=== PATIENT | male | born 1960 | race Caucasian/White ===

== ENCOUNTER 2017-04-04 15:55 | Emergency (ER) | payer OTHER ==
[~2017-04-04] VITALS: Ht 180.3 cm; Wt 122.5 kg
[~2017-04-04 15:55] MED LIST: ASPIRIN 81MG TA81 MG PO; FLEXERIL10 MG PO; FLONASE 50 MCG16 GM; HCTZ OR; LASIX40 MG PO; LEVAQUIN 750 M750 MG PO; LIPITOR20 MG OR; LISINOPRIL2.5 MG PO; LORATADINE 10MG10 M1 PO; MULTIVITAMIN1 TA1 PO; PAXIL20 MG PO; PLAVIX75 MG PO; POTASSIUM CHLO20 ME2 PO; PREDNISONE 20MG20 MG PO; SINGULAIR10 MG PO; VALIUM 10MG TAB10 MG PO
--- NOTE | 2017-04-04 16:24 | Urgent Treatment Center Report ---
History of Present Issue Date/Time Seen by Provider 04/04/17 1605 Visit Reason Pt arrived:Walked Presenting Problem:CONGESTION, SINUS PRESSURE Location if Accident: Onset of symptoms date/time:/ or onset unknown for:MEDICAL HX UNKNOWN Have you (or family members/close friends) recently traveled outside the [place]? N If Yes, where/when: Have you had exposure to infectious disease within the past month? TB? Other? Specify: Patient state that he often gets sinus infections States that he has been having sinus pain and pressure for the last few days State that he is having sinus pain behind his eyes and noticed that his drainage changed colors and now a yellowish brown in color. States that pain has continued to get worse and so he came in to get medication ALLERGIES Coded Allergies: penicillin G (02/29/16) Home Medications Active Scripts Fluticasone Propionate (Flonase 50 Mcg Nasal Council) 2 SPRAY NA DAILY #1 BOT Prov: 06/22/16 Reported Medications Furosemide (Lasix) 40 MG PO BID Clopidogrel Bisulfate (Plavix) 75 MG PO DAILY Atorvastatin Calcium (Lipitor 20MG) 80 MG OR DAILY LISINOPRIL (Lisinopril) 2.5 MG PO DAILY ASPIRIN (Aspirin) 81 MG PO DAILY POTASSIUM CHL (Potassium Chloride) 20 MEQ PO DAILY Loratadine (Loratadine 10MG Tablet) 10 MG PO DAILY Multiple Vitamin (Multivitamin) 1 TAB PO DAILY History Medical History General Angina: No AR: Yes Hypertension? Yes Hyperlipidemia? Yes CHF? No DVT? Yes COPD? No Asthma? No GERD? No Gastric ulcers? No GI Bleed? No Hernia? No Thyroid Problems? No Hypothyroidism? No CVA? No Seizures? No Diabetes? No GB Disease: Yes MRSA? No TB? No Cancer? No Immunization HX DT/Tetanus UNKNOWN Surgical Hx Previous Surgery?Y GALLBLADDER CARDIAC STENT 05/2008 VEIN PROCEDURES Social History Smoking Hx Smoker: Never Smoker Tobacco: No Alcohol Alcohol: No Review of Systems All Other Systems Reviewed and Negative ENT nose congestion. Physical Exam Vital Signs Vital Signs Date Time Temp Pulse Resp B/P Pulse O2 O2 Flow FiO2 Ox Delivery Rate 04/04 1600 97.0 76 22 130/76 97 General Appearance normal appearance, WD/WN, no apparent distress Ear, Nose, Throat sinus pain/drainage, nasal congestion, Reports thick yellowish brown discharge from nose Respiratory Status Yes: trachea midline, chest symmetrical, non tender chest. No: respiratory distress. Lung Sounds bilateral: normal breath sounds, lungs clear. Cardiovascular normal exam, regular rate/rhythm Neurologic alert, normal exam, oriented x 3 Medical Decision Making LABS/Meds/Orders Pt receiving controlled substance in ED? No Results/Orders Current Medication Orders Sig/Rudy Start time Last Medication Dose Route Stop Time Status Admin Methylprednisolone 0 .STK-MED ONE 04/04 1632 DC Sodium Succinate .ROUTE Methylprednisolone 125 MG ONCE ONE 04/04 1630 DC Sodium Succinate IM 04/04 1631 Departure Departure Time of Disposition 1620 Disposition DC Home or Self Care(routine) Clinical Impression Primary Impression: Sinusitis Qualifiers: Sinusitis location: unspecified location Chronicity: unspecified Qualified Code: J32.9 - Chronic sinusitis, unspecified Condition STABLE Referrals Juan Carlos POE,Herminio (Family): 3 Days-Call Office if no improvement Patient Instructions DI for Sinusitis, Sinus Headache, Sinusitis Additional Instructions Start antibiotic. Sinus infections may take 2-3 days to notice much improvement so be sure to use conservative measures as discussed for symptoms Ok to continue Sudafed Flonase 2 spray in each nostril daily to help with nasal congestion, sinus an ear pressure/inflammation Lots of Fluids Sleep elevated Humidifer/vaporizer Augmentin can cause GI effects. Probiotics may help to prevent these symptoms, make sure to eat yogurt at least twice daily will help prevent GI upset and replace the good sam in your abdomen Discharge Counseling Counseled pt/family regarding diagnosis, medications/RX, home care, follow up needs Prescriptions Current Visit Scripts Doxycycline Hyclate (Vibramycin) 100 MG PO BID #14 CAP at 1638
[2017-04-04] MEDS ORDERED: DOXYCYCLINE HY100 M4 PO (16:34)
[2017-04-04 16:35] VITALS: BP 128/77
[2017-04-14] MEDS ORDERED: IBUPROFEN800 MG PO (02:03)
[2017-04-14] MEDS ORDERED: PANTOPRAZOLE40 M1 PO (10:38)
== END 2017-04-04 16:37 | disposition home or self-care (01) ==
LOC: UTC 15:55
DX: J32.9 Chronic sinusitis, unspecified (principal); I10 Essential (primary) hypertension; Z95.5 Presence of coronary angioplasty implant and graft; Z86.718 Personal history of other venous thrombosis and embolism; Z79.02 Long term (current) use of antithrombotics/antiplatelets; Z79.82 Long term (current) use of aspirin; Z79.51 Long term (current) use of inhaled steroids; Z79.899 Other long term (current) drug therapy

== ENCOUNTER 2017-04-06 10:14 | Emergency (ER) | payer OTHER ==
[~2017-04-06] VITALS: Ht 180.3 cm; Wt 122.5 kg
[~2017-04-06 10:14] MED LIST changes: +DOXYCYCLINE HY100 M4 PO
--- OUTSIDE RECORDS SUMMARY | 2017-04-06 10:20 | External Medical Summary Rpt ---
Author Author [facility] Organization [facility] Address Unknown Phone Unavailable Care Team Providers Care Netting Weaver Name Role Phone Serge LA PCP [phone] Encounter [facility] [id number] Date(s): 09/06/16 - 09/19/16 [facility] [address] [place] [address]- [phone] Discharge Disposition: OP Self Care or Home Attending Physician: VENUS KOCH MD-CAR Admitting Physician: VENUS KOCH MD-CAR Referring Physician: VENUS KOCH MD-CAR Reason for Visit CHEST PAIN, UNSPECIFIED Vital Signs No data available for this section Problem List Condition Effective Status Health Informant Dates Status CAD Active patient (coronary artery disease)(Con firmed) Deep vein Active patient thrombosis(C onfirmed) Edema(Confir Active patient med) GERD Active patient (gastroesoph ageal reflux disease)(Con firmed) History of Active patient hyperlipidem ia(Confirmed ) H/O varicose Active patient veins(Confir med) Hyperlipidem Active patient ia(Confirmed ) Hypertension Active patient (Confirmed) Venous Active patient insufficienc y(Confirmed) Apnea, Active patient sleep(Confir med) Stented Active patient coronary artery(Confi rmed) Allergies, Adverse Reactions, Alerts Substance Reaction Severity Status penicillins1 Active 1from precardiac cath admission order sheet Medications aspirin (Aspirin Low Dose 81 mg oral tablet) Refills: 0 atorvastatin (Lipitor) 80 mg, Oral, At Bedtime, Refills: 0 cetirizine (ZyrTEC 10 mg oral tablet) 1 Tab, Oral, Every Day, Refills: 0 clopidogrel (Plavix 75 mg oral tablet) 1 Tab, Oral, Every Day, Refills: 0 furosemide (furosemide 40 mg oral tablet) 3 Tab, Oral, Every Day, Refills: 0 lisinopril (lisinopril 2.5 mg oral tablet) 1 Tab, Oral, Every Day, Refills: 0 potassium chloride (potassium chloride 20 mEq oral tablet, extended release)2 Tab, Oral, Every Day, Refills: 0 Results No data available for this section Immunizations No data available for this section Procedures No data available for this section Social History Social History Response Type Smoking Status Never smoker Assessment and Plan No data available for this section Hospital Discharge Instructions No data available for this section
--- OUTSIDE RECORDS SUMMARY | 2017-04-06 10:20 | External Medical Summary Rpt ---
Author Author [facility] Organization [facility] Address Unknown Phone Unavailable Care Team Providers Care Hydrotel Operator Name Role Phone Serge LA PCP [phone] Encounter [facility] [id number] Date(s): 12/21/15 - 01/23/16 [facility] [address] [place] [address]- Discharge Disposition: OP Self Care or Home Attending Physician: VENUS KOCH MD Admitting Physician: VENUS KOCH MD Referring Physician: VENUS KOCH MD Reason for Visit DVT Vital Signs No data available for this [...] 1from precardiac cath admission order sheet Medications No data available for this section Results No data available for this section Immunizations No data available for this section Procedures No data available for this section Social History Social History Response Type Smoking Status Never smoker Assessment and Plan No data available for this section Hospital Discharge Instructions No data available for this section
--- OUTSIDE RECORDS SUMMARY | 2017-04-06 10:20 | External Medical Summary Rpt ---
Author Author [facility] Organization [facility] Address Unknown Phone Unavailable Care Team Providers Care Licensing Coordinator Name Role Phone Serge LA PCP [phone] Encounter [facility] [id number] Date(s): 12/21/15 - 01/23/16 [facility] [place] [address]- Discharge Disposition: OP Self Care or Home [...]
--- OUTSIDE RECORDS SUMMARY | 2017-04-06 10:20 | External Medical Summary Rpt ---
Author Author [facility] Organization [facility] Address Unknown Phone Unavailable Care Team Providers Care Shingle Shearing Machine Operator Name Role Phone Serge LA PCP [phone] Encounter [facility] [id number] Date(s): 12/21/15 - 01/22/[address] [facility] [address] [place] [address]- Discharge Disposition: OP Self Care or Home Attending Physician: VENUS KOCH MD Admitting Physician: VENUS KOCH MD Referring Physician: VENUS KOCH MD Reason for Visit VENOUS INSUFFICIENCY (CHRONIC) (PERIPHERAL) Vital Signs Most recent 1 2 3 to oldest [Reference Range]: Temperature Temporal artery Source scanning (01/22/16 8:20 AM) Temperature Fahrenheit Mode (01/22/16 8:20 AM) Temperature, 97.7 Deg F Fahrenheit (01/22/16 8:20 AM) [96.8-99.7 Deg F] Clinical 36.5 Deg C Temperature, (01/22/16 8:20 AM) C Heart Rate 68 bpm 66 bpm (01/22/16 62 bpm (01/22/16 Monitored (01/22/16 1:00 PM) 12:45 PM) 12:30 PM) [60-100 bpm] Respiratory 15 Breaths/Min 14 Breaths/Min 16 Breaths/Min Rate [14-20 (01/22/16 1:00 PM) (01/22/16 12:45 (01/22/16 12:30 Breaths/Min] PM) PM) Blood 112/70 mmHg 112/70 mmHg 106/68 mmHg Pressure (01/22/16 1:00 PM) (01/22/16 12:45 (01/22/16 12:00 [90-140/60-9 PM) PM) 0 mmHg] Mean 86 86 (01/22/16 12:45 79 (01/22/16 12:00 Arterial (01/22/16 1:00 PM) PM) PM) Pressure (MAP)-BMDI Oxygen 97 % 99 % (01/22/16 99 % (01/22/16 Saturation (01/22/16 1:00 PM) 12:45 PM) 12:30 PM) [94-100 %] Oxygen Room air Therapy Mode (01/22/16 8:20 AM) Problem List Condition Effective Status Health Informant [...] 1from precardiac cath admission order sheet Medications cetirizine (ZyrTEC 10 mg oral tablet) 1 Tab, Oral, Every Day, Refills: 0 furosemide (furosemide 40 mg oral tablet) 3 Tab, Oral, Every Day, Refills: 0 Results No data available for this section Immunizations No data available for this section Procedures No data available for this section Social History Social History Response Type Smoking Status Never smoker Assessment and Plan No data available for this section Hospital Discharge Instructions Patient EducationConscious Sedation, Adult, Care After Endovenous Ablation, Care After
--- OUTSIDE RECORDS SUMMARY | 2017-04-06 10:20 | External Medical Summary Rpt ---
Author Author [facility] Organization [facility] Address Unknown Phone Unavailable Care Team Providers Care Irrigator Gravity Flow Name Role Phone Serge LA PCP [phone] Encounter [facility] [id number] Date(s): 12/21/15 - 01/22/16 [facility] [address] [place] [address]- Discharge Disposition: OP Self Care or Home [...]
--- OUTSIDE RECORDS SUMMARY | 2017-04-06 10:20 | External Medical Summary Rpt ---
Author Author [facility] Organization [facility] Address Unknown Phone Unavailable Care Team Providers Care Pan Reclaim Processor Name Role Phone Serge LA PCP [phone] Encounter [facility] [id number] Date(s): 09/06/16 - 09/19/16 [facility] [address] [place] [address]- [phone] Discharge Disposition: OP Self Care or Home [...]
--- OUTSIDE RECORDS SUMMARY | 2017-04-06 10:21 | External Medical Summary Rpt ---
Author Author [facility] Organization [facility] Address Unknown Phone Unavailable Care Team Providers Care Catalog Library Assistant Name Role Phone Serge LA PCP [phone] Encounter [facility] [id number] Date(s): 10/01/16 - 10/09/16 [facility] [place] [address]- Discharge Disposition: OP Self Care or Home Attending Physician: BRIAN ALEJANDRO -CAT Admitting Physician: BRIAN ALEJANDRO -CAT Referring Physician: BRIAN ALEJANDRO -CAT Reason for Visit CHEST PAIN, UNSPECIFIED Vital Signs No data available for this section Problem List Condition Effective Status Health Informant Dates Status Cardiopulmon Active mis arrest(Confi rmed) CAD Active patient (coronary artery disease)(Con firmed) [...]
--- OUTSIDE RECORDS SUMMARY | 2017-04-06 10:21 | External Medical Summary Rpt ---
Author Author [facility] Organization [facility] Address Unknown Phone Unavailable Care Team Providers Care Respiratory Therapy Technician Name Role Phone Serge LA PCP [phone] Encounter [facility] [id number] Date(s): 10/01/16 - 10/09/16 [facility] [place] [address]- Discharge Disposition: OP Self Care or Home [...]
--- OUTSIDE RECORDS SUMMARY | 2017-04-06 10:21 | External Medical Summary Rpt ---
Author Author [facility] Organization [facility] Address Unknown Phone Unavailable Care Team Providers Care Irrigation Foreman Name Role Phone Serge LA PCP [phone] Encounter [facility] [id number] Date(s): 09/27/16 - 09/27/16 [facility] [address] [place] [address]- [phone] Discharge Diagnosis: Chest pain Discharge Disposition: OP Self Care or Home Attending Physician: DEBBIE CHIRINOS DO Admitting Physician: DEBBIE CHIRINOS DO Referring Physician: DEBBIE CHIRINOS DO Reason for Visit CHEST PAIN, UNSPECIFIED Vital Signs Most recent 1 2 3 to oldest [Reference Range]: Temperature Oral Source (09/27/16 3:10 PM) Temperature Fahrenheit Mode (09/27/16 3:10 PM) Temperature, 98.4 Deg F Fahrenheit (09/27/16 3:10 PM) [96.8-99.7 Deg F] Clinical 36.9 Deg C Temperature, (09/27/16 3:10 PM) C Peripheral 64 bpm Pulse Rate (09/27/16 3:10 PM) [60-100 bpm] Heart Rate 54 bpm 58 bpm 54 bpm Monitored *LOW* *LOW* *LOW* [60-100 bpm] (09/27/16 7:30 PM) (09/27/16 7:15 PM) (09/27/16 7:08 PM) Respiratory 11 Breaths/Min 14 Breaths/Min 10 Breaths/Min Rate [14-20 *LOW* (09/27/16 7:15 PM) *LOW* Breaths/Min] (09/27/16 7:30 PM) (09/27/16 7:08 PM) Blood 125/73 mmHg 133/79 mmHg 130/85 mmHg Pressure (09/27/16 7:30 PM) (09/27/16 6:30 PM) (09/27/16 6:00 PM) [90-140/60-9 0 mmHg] Mean 93 108 101 Arterial (09/27/16 7:30 PM) (09/27/16 6:30 PM) (09/27/16 6:00 PM) Pressure (MAP)-BMDI Oxygen 100 % 100 % 100 % Saturation (09/27/16 7:30 PM) (09/27/16 7:15 PM) (09/27/16 7:08 PM) [94-100 %] Oxygen Room air Room air Room air Therapy Mode (09/27/16 7:15 PM) (09/27/16 7:08 PM) (09/27/16 6:30 PM) Weight Critical Source, ED estimated dosing weight (09/27/16 3:03 PM) Weight Entry [place] Format (09/27/16 3:03 PM) Weight 270 lb [place] lb (09/27/16 3:03 PM) CLINICALWEIG 122.73 kg HT (09/27/16 3:03 PM) Problem List Condition Effective Status Health Informant [...] Tab, Oral, Every Day, Refills: 0 Results GENERAL CHEMISTRY Most recent 1 2 to oldest [Reference Range]: Sodium Level 143 mmol/L [136-146 (09/27/16 3:17 PM) mmol/L] Potassium 3.7 mmol/L Level (09/27/16 3:17 PM) [3.5-5.1 mmol/L] Chloride 108 mmol/L Level (09/27/16 3:17 PM) [102-112 mmol/L] Carbon 27 mmol/L Dioxide (09/27/16 3:17 PM) Level [21-32 mmol/L] Anion Gap 12 [9-20] (09/27/16 3:17 PM) Glucose 89 mg/dL Level (09/27/16 3:17 PM) [74-106 mg/dL] Blood Urea 13 mg/dL Nitrogen (09/27/16 3:17 PM) [7-22 mg/dL] Creatinine 0.90 mg/dL Level (09/27/16 3:17 PM) [0.70-1.30 mg/dL] eGFR 105 mL/min/1.73m2 [>=60 (09/27/16 3:17 PM) mL/min/1.73m 2] eGFR 87 mL/min/1.73m2 NonAfrican (09/27/16 3:17 PM) [>=60 mL/min/1.73m 2] Bun/Creatini 14.4 ne (09/27/16 3:17 PM) [8.0-20.0] Calcium 8.7 mg/dL Level (09/27/16 3:17 PM) [8.5-10.1 mg/dL] Protein 7.0 Gram/dL Total (09/27/16 3:17 PM) [6.4-8.2 Gram/dL] Albumin 3.6 Gram/dL Level (09/27/16 3:17 PM) [3.4-5.0 Gram/dL] Globulin 3.4 Gram/dL [1.5-4.5 (09/27/16 3:17 PM) Gram/dL] A/G Ratio 1.1 [1.1-2.5] (09/27/16 3:17 PM) Bilirubin 0.5 mg/dL Total (09/27/16 3:17 PM) [0.2-1.3 mg/dL] Bilirubin 0.2 mg/dL Direct (09/27/16 3:17 PM) [0.0-0.2 mg/dL] Alk Phos 127 Units/Liter [27-136 (09/27/16 3:17 PM) Units/Liter] AST [5-37 18 Units/Liter Units/Liter] (09/27/16 3:17 PM) ALT [12-78 35 Units/Liter Units/Liter] (09/27/16 3:17 PM) Magnesium 2.2 mg/dL Level (09/27/16 3:17 PM) [1.5-2.4 mg/dL] CARDIAC SPECIFIC MARKERS Most recent 1 2 to oldest [Reference Range]: Troponin I <0.015 ng/mL <0.015 ng/mL Ultra (09/27/16 6:32 PM) (09/27/16 3:17 PM) [0.015-0.045 ng/mL] ProBNP 31 pg/mL [0-125 (09/27/16 3:17 PM) pg/mL] HEMATOLOGY Most recent 1 2 to oldest [Reference Range]: WBC [4.2-9.1 7.5 K/uL K/uL] (09/27/16 3:17 PM) RBC 4.77 Million/uL [4.63-6.08 (09/27/16 3:17 PM) Million/uL] Hgb 14.4 g/dL [13.7-17.5 (09/27/16 3:17 PM) g/dL] Hct 42.9 % [40.1-51.0 (09/27/16 3:17 PM) %] MCV 89.9 fL [79.0-94.8 (09/27/16 3:17 PM) fL] MCH 30.2 pg [25.6-32.2 (09/27/16 3:17 PM) pg] MCHC 33.6 Gram/dL [32.2-36.5 (09/27/16 3:17 PM) Gram/dL] Platelet 354 K/uL Count (09/27/16 3:17 PM) [163-369 K/uL] MPV 9.1 fL [9.4-12.4 *LOW* fL] (09/27/16 3:17 PM) RDW 13.0 % [11.6-14.4 (09/27/16 3:17 PM) %] Neut % 57.9 % [34.0-71.0 (09/27/16 3:17 PM) %] Neut # 4.35 K/uL [1.56-6.13 (09/27/16 3:17 PM) K/uL] Lymph % 29.5 % [19.3-53.1 (09/27/16 3:17 PM) %] Lymph # 2.21 x10(3)/uL [1.00-3.90 (09/27/16 3:17 PM) x10(3)/uL] [place] % 7.2 % [3.0-9.0 %] (09/27/16 3:17 PM) [place] # 0.54 K/uL [0.16-1.00 (09/27/16 3:17 PM) K/uL] Eos % 4.3 % [0.0-7.0 %] (09/27/16 3:17 PM) Eos # 0.32 x10(3)/uL [0.00-0.80 (09/27/16 3:17 PM) x10(3)/uL] Baso % 0.8 % [0.0-1.5 %] (09/27/16 3:17 PM) Baso # 0.06 x10(3)/uL [0.00-0.20 (09/27/16 3:17 PM) x10(3)/uL] Slide Review No (09/27/16 3:17 PM) IG# 0.02 x10(3)/uL [0.00-0.05 (09/27/16 3:17 PM) x10(3)/uL] IG% 0.30 % [0.00-0.60 (09/27/16 3:17 PM) %] Immunizations No data available for this section Procedures No data available for this section Social History Social History Response Type Smoking Status Never smoker Assessment and Plan No data available for this section Hospital Discharge Instructions Patient EducationNonspecific Chest Pain
--- OUTSIDE RECORDS SUMMARY | 2017-04-06 10:21 | External Medical Summary Rpt ---
Author Author [facility] Organization [facility] Address Unknown Phone Unavailable Care Team Providers Care [place]is [place] Manager Name Role Phone Serge LA PCP [phone] Encounter [facility] [id number] Date(s): 02/19/17 - 02/20/17 [facility] [address] [place] [address] [phone] Discharge Disposition: OP Self Care or Home Attending Physician: VENUS KOCH MD-CAR Admitting Physician: VENUS KOCH MD-CAR Referring Physician: VENUS KOCH MD-CAR Reason for Visit VENOUS INSUFFICIENCY (CHRONIC) (PERIPHERAL) Vital Signs Most recent 1 2 3 to oldest [Reference Range]: Temperature Temporal artery Source scanning (02/20/17 7:04 AM) Temperature Fahrenheit Mode (02/20/17 7:04 AM) Temperature, 97.8 Deg F Fahrenheit (02/20/17 7:04 [96.8-99.7 AM) Deg F] Clinical 36.6 Deg C Temperature, (02/20/17 7:04 C AM) Pulse Method Non-Invasive BP Device (02/20/17 7:04 AM) Peripheral 60 bpm (02/20/17 Pulse Rate 7:04 AM) [60-100 bpm] Heart Rate 58 bpm 58 bpm 56 bpm Monitored *LOW*(02/20/17 *LOW*(02/20/17 *LOW*(02/20/17 [60-100 bpm] 11:15 AM) 11:00 AM) 10:45 AM) Respiratory 17 Breaths/Min 13 Breaths/Min 16 Breaths/Min Rate [14-20 (02/20/17 11:15 *LOW*(02/20/17 (02/20/17 10:45 Breaths/Min] AM) 11:00 AM) AM) Blood Arm, right upper Pressure (02/20/17 7:04 Location AM) Blood Non-Invasive BP Pressure Device (02/20/17 Source 7:04 AM) Blood 110/62 mmHg 110/62 mmHg 111/62 mmHg Pressure (02/20/17 11:15 (02/20/17 11:00 (02/20/17 10:45 [90-140/60-9 AM) AM) AM) 0 mmHg] Mean 78 mmHg (02/20/17 78 mmHg (02/20/17 78 mmHg (02/20/17 Arterial 11:15 AM) 11:00 AM) 10:45 AM) Pressure (MAP) Mean 81 (02/20/17 81 (02/20/17 81 (02/20/17 Arterial 11:15 AM) 11:00 AM) 10:45 AM) Pressure (MAP)-BMDI Oxygen 99 % (02/20/17 99 % (02/20/17 98 % (02/20/17 Saturation 11:15 AM) 11:00 AM) 10:45 AM) [94-100 %] Oxygen Room air Room air,CPAP Therapy Mode (02/20/17 7:04 (02/20/17 7:04 AM) AM) Height Stated (02/20/17 Source 7:04 AM) Height Entry [place] Format (02/20/17 7:04 AM) Height/Lengt 5 ft (02/20/17 h, ERITREAN 7:04 AM) (ft) Height/Lengt 11 Inch (02/20/17 h ERITREAN 7:04 AM) CLINICALHEIG 180.34 cm HT (02/20/17 7:04 AM) Weight Standing scale Source (02/20/17 7:04 AM) Weight Entry [place] Format (02/20/17 7:04 AM) Weight 280 lb (02/20/17 [place] lb 7:04 AM) CLINICALWEIG 127.27 kg HT (02/20/17 7:04 AM) Body Surface 2.44 m2 (02/20/17 Area (BSA) 7:04 AM) Body Mass 39.1 kg/m2 Index [19-24 *HI*(02/20/17 kg/m2] 7:04 AM) [place] Body 74 kg (02/20/17 Weight 7:04 AM) Problem List Condition Effective Status Health Informant Dates Status Allergic Active patient rhinitis(Con firmed) Bronchitis(C Active patient onfirmed) Cardiopulmon Active mis arrest(Confi rmed) Chronic Active patient anxiety(Conf irmed) CAD Active patient (coronary artery disease)(Con firmed) Deep vein Active patient thrombosis(C onfirmed) Edema(Confir Active patient med) GERD Active patient (gastroesoph ageal reflux disease)(Con firmed) History of Active patient hyperlipidem ia(Confirmed ) H/O varicose Active patient veins(Confir med) Hyperlipidem Active patient ia(Confirmed ) Hypertension Active patient (Confirmed) Myocardial Active patient infarction(C onfirmed) Venous Active patient insufficienc y(Confirmed) Sinusitis(Co Active patient nfirmed) Apnea, Active patient sleep(Confir med) Stented Active patient coronary artery(Confi rmed) Allergies, Adverse Reactions, Alerts Substance Reaction Severity Status penicillins1 rash Active 1from precardiac cath admission order sheet Medications aspirin 81 Milligram(s) Oral Every Day. atorvastatin (Lipitor) 80 Milligram(s) Oral At Bedtime. clopidogrel (Plavix 75 mg oral tablet) 1 Tablet(s) Oral Every Day. furosemide (furosemide 40 mg oral tablet) 3 Tablet(s) Oral Every Day. lisinopril (lisinopril 2.5 mg oral tablet) 1 Tablet(s) Oral Every Day. multivitamin 1 Tablet(s) Oral Every Day. potassium chloride (potassium chloride 20 mEq oral tablet, extended release)2 Tablet(s) Oral Every Day. Results No data available for this section Immunizations No data available for this section Procedures No data available for this section Social History Social History Response Type Smoking Status Never smoker Assessment and Plan No data available for this section Hospital Discharge Instructions Patient EducationConscious Sedation, Adult, Care After Endovenous Ablation, Care After
--- OUTSIDE RECORDS SUMMARY | 2017-04-06 10:21 | External Medical Summary Rpt ---
Author Author [facility] Organization [facility] Address Unknown Phone Unavailable Care Team Providers Care Professor Of Special Education Name Role Phone Serge LA PCP [phone] Encounter [facility] [id number] Date(s): 02/19/17 - 02/20/17 [facility] [address] [place] [address]- Discharge Disposition: OP Self Care or Home [...] Stated (02/20/17 Source 7:04 AM) Height Entry [place] Format (02/20/17 7:04 AM) Height/Lengt 5 ft (02/20/17 h, [place] 7:04 AM) (ft) Height/Lengt 11 Inch (02/20/17 h [place] 7:04 AM) CLINICALHEIG 180.34 cm HT (02/20/17 7:04 AM) Weight Standing scale Source (02/20/17 7:04 AM) Weight Entry [place] Format (02/20/17 7:04 AM) Weight 280 lb (02/20/17 [place] lb 7:04 AM) CLINICALWEIG 127.27 kg HT (02/20/17 7:04 AM) Body Surface 2.44 m2 (02/20/17 Area (BSA) 7:04 AM) Body Mass 39.1 kg/m2 Index [19-24 *HI*(02/20/17 kg/m2] 7:04 AM) [place] Body 74 kg (02/20/17 Weight 7:04 AM) [...]
--- OUTSIDE RECORDS SUMMARY | 2017-04-06 10:21 | External Medical Summary Rpt ---
Author Author [facility] ([place], [place]) Organization [facility] ([place], [place]) Address Unknown Phone Unavailable Care Team Providers Care Auto Damage Adjuster Name Role Phone Serge LA PCP [phone] Encounter [facility] [id number] Date(s): 01/10/17 - 02/21/17 [facility] ([place], [place]) [address] [place] [address]- Discharge Disposition: OP Self Care or Home Attending Physician: VENUS KOCH MD-CAR Admitting Physician: VENUS KOCH MD-CAR Referring Physician: VENUS KOCH MD-CAR Reason for Visit ACUTE EMBOLISM AND THROMBOSIS OF LEFT FEMORAL VEIN Vital Signs No data available for this [...]
--- OUTSIDE RECORDS SUMMARY | 2017-04-06 10:21 | External Medical Summary Rpt ---
Author Author [facility] Organization [facility] Address Unknown Phone Unavailable Care Team Providers Care Personal Care Worker Name Role Phone Serge LA PCP [phone] Encounter [facility] [id number] Date(s): 09/27/16 - 09/27/16 [facility] [address] [place] [address]- Discharge Diagnosis: Chest pain Discharge Disposition: OP [...] dosing weight (09/27/16 3:03 PM) Weight Entry [place] Format (09/27/16 3:03 PM) Weight 270 lb [place] Islander lb (09/27/16 3:03 PM) CLINICALWEIG 122.73 kg [...] 2.21 x10(3)/uL [1.00-3.90 (09/27/16 3:17 PM) x10(3)/uL] [place] % 7.2 % [3.0-9.0 %] (09/27/16 3:17 PM) [place] # 0.54 K/uL [0.16-1.00 (09/27/16 3:17 PM) [...]
--- OUTSIDE RECORDS SUMMARY | 2017-04-06 10:21 | External Medical Summary Rpt ---
Author Author [facility] Organization [facility] Address Unknown Phone Unavailable Care Team Providers Care Claim Rep Name Role Phone Serge LA PCP [phone] Encounter [facility] [id number] Date(s): 10/17/16 - 10/18/16 [facility] [address] [place] [address]- Discharge Disposition: OP Self Care or Home Attending Physician: VENUS KOCH MD-CAR Admitting Physician: VENUS KOCH MD-CAR Referring Physician: VENUS KOCH MD-CAR Reason for Visit ABNORMAL RESULT OF OTHER CARDIOVASCULAR FUNCTION STUDY Vital Signs Most recent 1 2 3 to oldest [Reference Range]: Temperature Temporal artery Source scanning (10/18/16 8:40 AM) Temperature Fahrenheit Mode (10/18/16 8:40 AM) Temperature, 98.1 Deg F Fahrenheit (10/18/16 8:40 AM) [96.8-99.7 Deg F] Clinical 36.7 Deg C Temperature, (10/18/16 8:40 AM) C Pulse Method Non-Invasive BP Device (10/18/16 8:40 AM) Peripheral 61 bpm Pulse Rate (10/18/16 8:40 AM) [60-100 bpm] Heart Rate 64 bpm 70 bpm 58 bpm Monitored (10/18/16 1:15 PM) (10/18/16 1:00 PM) *LOW*(10/18/16 [60-100 bpm] 12:45 PM) Respiratory 13 Breaths/Min 16 Breaths/Min 17 Breaths/Min Rate [14-20 *LOW* (10/18/16 1:00 PM) (10/18/16 12:45 Breaths/Min] (10/18/16 1:15 PM) PM) Blood Arm, right upper Pressure (10/18/16 8:40 AM) Location Blood Non-Invasive BP Pressure Device (10/18/16 Source 8:40 AM) Blood Sitting Pressure (10/18/16 8:40 AM) Position Blood 130/91 mmHg 130/91 mmHg 124/73 mmHg Pressure (10/18/16 1:15 PM) (10/18/16 1:00 PM) (10/18/16 12:45 [90-140/60-9 PM) 0 mmHg] Mean 104 mmHg 104 mmHg 90 mmHg (10/18/16 Arterial (10/18/16 1:15 PM) (10/18/16 1:00 PM) 12:45 PM) Pressure (MAP) Mean 104 104 88 (10/18/16 12:45 Arterial (10/18/16 1:15 PM) (10/18/16 1:00 PM) PM) Pressure (MAP)-BMDI Oxygen 97 % 98 % 96 % (10/18/16 Saturation (10/18/16 1:15 PM) (10/18/16 1:00 PM) 12:45 PM) [94-100 %] Oxygen Room air Therapy Mode (10/18/16 8:40 AM) Height Stated Source (10/18/16 8:40 AM) Height Entry [place] Format (10/18/16 8:40 AM) Height/Lengt 71 Inch h YI (10/18/16 8:40 AM) CLINICALHEIG 180.34 cm HT (10/18/16 8:40 AM) Weight Standing scale Source (10/18/16 8:40 AM) Weight Entry A[place] Format (10/18/16 8:40 AM) Weight 274 lb Danish lb (10/18/16 8:40 AM) CLINICALWEIG 124.55 kg HT (10/18/16 8:40 AM) Body Surface 2.41 m2 Area (BSA) (10/18/16 8:40 AM) Body Mass 38.3 kg/m2 Index *HI* [19.0-24.0 (10/18/16 8:40 AM) kg/m2] [place] Body 74 kg Weight (10/18/16 8:40 AM) Problem List Condition Effective Status Health Informant Dates Status Cardiopulmon Active mis arrest(Confi rmed) Chronic Active [...] 0 Results GENERAL CHEMISTRY Most recent 1 to oldest [Reference Range]: eGFR 121 mL/min/1.73m2 [>=60 (10/18/16 9:00 AM) mL/min/1.73m 2] eGFR 100 mL/min/1.73m2 NonAfrican (10/18/16 9:00 AM) [>=60 mL/min/1.73m 2] Sodium POC 142 mmol/L [138-146 (10/18/16 9:00 AM) mmol/L] Potassium 3.7 mmol/L POC [3.5-4.9 (10/18/16 9:00 AM) mmol/L] Chloride POC 101 mmol/L [98-109 (10/18/16 9:00 AM) mmol/L] CO2 POC 27.0 mmol/L [24.0-29.0 (10/18/16 9:00 AM) mmol/L] Anion Gap 18.0 mmol/L POC (10/18/16 9:00 AM) [10.0-20.0 mmol/L] Glucose POC 105 mg/dL [70-105 (10/18/16 9:00 AM) mg/dL] BUN POC 13 mg/dL [8-26 mg/dL] (10/18/16 9:00 AM) Creatinine 0.8 mg/dL POC [0.6-1.3 (10/18/16 9:00 AM) mg/dL] Ca Ioniz POC 1.23 mmol/L [1.12-1.32 (10/18/16 9:00 AM) mmol/L] HEMATOLOGY Most recent 1 to oldest [Reference Range]: Platelet 340 K/uL Count (10/18/16 8:14 AM) [163-369 K/uL] Hematocrit 43.0 % POC (10/18/16 9:00 AM) [38.0-51.0 %] Hemoglobin 14.6 Gram/dL POC (10/18/16 9:00 AM) [12.0-17.0 Gram/dL] Immunizations No data available for this section Procedures No data available for this section Social History Social History Response Type Smoking Status Never smoker Assessment and Plan No data available for this section Hospital Discharge Instructions Patient EducationConscious Sedation, Adult, Care After Radial Site Care Transradial Angiography
--- OUTSIDE RECORDS SUMMARY | 2017-04-06 10:21 | External Medical Summary Rpt ---
Author Author [facility] Organization [facility] Address Unknown Phone Unavailable Care Team Providers Care Vehicle Dismantler Name Role Phone Serge LA PCP [phone] Encounter [facility] [id number] Date(s): 10/17/16 - 10/18/16 [facility] [address] [place] [address]- Discharge Disposition: OP Self Care or Home [...] Stated Source (10/18/16 8:40 AM) Height Entry [place] Format (10/18/16 8:40 AM) Height/Lengt 71 Inch h [place] (10/18/16 8:40 AM) CLINICALHEIG 180.34 cm HT (10/18/16 8:40 AM) Weight Standing scale Source (10/18/16 8:40 AM) Weight Entry [place] Format (10/18/16 8:40 AM) Weight 274 lb [place] lb (10/18/16 8:40 AM) CLINICALWEIG 124.55 kg HT (10/18/16 8:40 AM) Body Surface 2.41 m2 Area (BSA) (10/18/16 8:40 AM) Body Mass 38.3 kg/m2 Index *HI* [19.0-24.0 (10/18/16 8:40 AM) kg/m2] [place] Body 74 kg Weight (10/18/16 8:40 AM) [...]
--- OUTSIDE RECORDS SUMMARY | 2017-04-06 10:21 | External Medical Summary Rpt ---
Author Author [facility] Organization [facility] Address Unknown Phone Unavailable Care Team Providers Care Tests Superintendent Name Role Phone Serge LA PCP [phone] Encounter [facility] [id number] Date(s): 01/10/17 - 02/21/17 [facility] [address] [place] [address]- [phone] Discharge Disposition: OP Self Care or Home [...]
--- OUTSIDE RECORDS SUMMARY | 2017-04-06 10:22 | External Medical Summary Rpt | CCD ---
Author Author , RHONA MELGOZA Address Unknown Phone [email or web address] Immunization Name Date Rout CVX Reac Dose Comm Prov Is Faci e tion ent ider Refu lity Give sed n Infl 10-2 Intr 150 0.5 Hist WALM No WALM uenz 0-20 amus mL oric ART7 ART7 a 16 cula al 259 259 Quad r Info Inj rmat ion - Sour ce Unsp ecif ied
--- OUTSIDE RECORDS SUMMARY | 2017-04-06 10:22 | External Medical Summary Rpt | CCD ---
Author Author [facility] Organization [facility] Address Unknown Phone Unavailable Purpose Continuity of Care Document - through 2016
--- OUTSIDE RECORDS SUMMARY | 2017-04-06 10:22 | External Medical Summary Rpt | CCD ---
Author Author , RHONA MELGOZA Address Unknown Phone [email or web address] Immunization Name Date Rout CVX Reac Dose Comm Prov Is Faci e tion ent ider Refu lity Give sed n Infl 10-2 Intr 150 0.5 Hist WALM No WALM uenz 0-20 amus mL oric ART7 ART7 a 16 cula al 259 259 Quad r Info Inj rmat ion - Sour ce Unsp ecif ied
--- OUTSIDE RECORDS SUMMARY | 2017-04-06 10:22 | External Medical Summary Rpt | CCD ---
Author Author , [facility] Organization [facility] Address Unknown Phone [email or web address] Care Team Providers Care Commercial Credit Head Name Role Phone Brigida Fermin MD, Unavailable Unavailable Brigida Fermin MD Purpose Continuity of Care Document - 11-15-2012 through 2016 Problems Code Diagnosis DOS Provider Status 412 412 OLD 11-16-2012 [place] MYOCARDIAL [facility] 722.10 722.10 11-16-2012 [place] LUMBAR DISC [facility] DISPLACEMEN T 729.81 729.81 11-16-2012 [place] SWELLING OF [facility] V14.0 V14.0 11-16-2012 [place] HX-PENICILL [facility] E78.5 Hyperlipide georgina, unspecified I10 Essential (primary) hypertensio n I48.91 Unspecified atrial fibrillatio n K21.9 Gastro-esop hageal reflux disease without esophagitis R07.9 Chest pain, unspecified Z86.718 Personal history of other venous thrombosis and embolism Z88.0 Allergy status to penicillin Allergies, Adverse Reactions, Alerts Type Drug Allergy Adverse Reaction to Substance Substance Reaction Severity PCN (penicillin) I-RASH Unknown Medications Na ND Rx Da Fi Fi Am Da Di Ph RX Ph St me C No te ll ll ou ys ag ar # ys at rm s nt no ma ic us Or Da si cy ia de te s n re d Sa 63 07 1 No li 80 -2 ne 70 1- Lo 10 20 ng Fl 07 13 er us 5 h Ac 10 ti ML ve Sy ri ng e SO 00 07 0 No EVELYNE 00 -2 -M 90 1- Lo ED 04 20 ng RO 72 13 er L 2 12 Ac 5 ti MG ve AL KE 00 07 0 No TO 40 -2 RO 93 1- Lo LA 79 20 ng C 50 13 er 30 1 Ac MG ti /M ve L AL TR 00 07 0 No AM 09 - AD 30 1- Lo OL 05 20 ng 80 13 er 50 1H MG Ac ti TA ve BL ET TA KE HO ME Vital Signs 11-16-2012 00:09 Name Value Interpretat Reference Comment ion Range BP 75 mm[Hg] Diastolic BP Systolic 121 mm[Hg] Heart 71 /min Rate/Pulse O2% 96 % Respiratory 18 /min Rate 11-15-2012 22:57 Name Value Interpretat Reference Comment ion Range BP 77 mm[Hg] Diastolic BP Systolic 101 mm[Hg] Heart 75 /min Rate/Pulse O2% 96 % Respiratory 20 /min Rate Results Labs Lab Lab Date Result Refere Interp Status Commen Order Detail nces retati t Range on COMPREHENSIVE METABOLIC PANEL (11-15-2012 22:45) Glucose 115 74-106 complet 013 mg/dL ed Bld-mCn 22:45 c BUN 12 7-18 complet Bld-mCn 013 mg/dL ed c 22:45 Creat 1.2 0.8-1.3 complet SerPl-m 013 mg/dL ed Cnc 22:45 GFR 63 Greater complet (ESTIMA 013 ML/MIN than ed LESLIE) 22:45 60 Sodium 140 136-145 complet SerPl-s 013 mmoL/L ed Cnc 22:45 Potassi 3.3 3.5-5.1 complet um 013 mmoL/L ed SerPl-s 22:45 Cnc Chlorid 101 98-107 complet e 013 mmoL/L ed SerPl-s 22:45 Cnc CO2 31 21.0-32 complet SerPl-s 013 mmoL/L .0 ed Cnc 22:45 Calcium 8.7 8.5-10. complet 013 mg/dL 1 ed SerPl-m 22:45 Cnc Prot 7.5 6.4-8.2 complet SerPl-m 013 gm/dL ed Cnc 22:45 Albumin 3.8 3.4-5.0 complet 013 gm/dL ed SerPl-m 22:45 Cnc Globuli 3.7 1.3-3.2 complet n 013 gm/dL ed Ser-mCn 22:45 c Albumin 07-21-2 1.0 UNK 1.1-1.8 complet /Glob 013 ed SerPl-m 22:45 Rto Bilirub 11-15-2 0.4 0.2-1.0 complet 013 mg/dL ed SerPl-m 22:45 Cnc AST 19 U/L 15-37 complet SerPl-c 013 ed Cnc 22:45 ALT 11-15-2 38 U/L 30-65 complet SerPl-c 013 ed Cnc 22:45 ALP 2 159 U/L 50-136 complet SerPl-c 013 ed Cnc 22:45 CBC with AUTO DIFF (11-15-2012 22:45) WBC # 11-15-2 9.1 4.8-10. complet Bld 013 K/MM3 8 ed Auto 22:45 RBC # 11-15-2 4.85 4.6-6.2 complet Bld 013 M/mm3 ed Auto 22:45 Hgb 11-15-2 13.7 14.1-18 complet Bld-mCn 013 g/dL .0 ed c 22:45 Hct Fr 11-15-2 41.5 % 42.0-52 complet Bld 013 .0 ed 22:45 MCV RBC 11-15-2 85.5 fl 82.2-97 complet 013 .8 ed 22:45 MCH RBC 11-15-2 28.2 pg 27-31.2 complet Qn 013 ed Auto 22:45 MEAN 11-15-2 33.0 31.8-35 complet CORPUSC 013 g/dl .4 ed ULAR 22:45 HGB CONC RDW RBC 11-15-2 15.0 % 11.5-17 complet Auto 013 .5 ed 22:45 Platele --2 485 142-424 complet t Bld 013 K/mm3 ed Ql 22:45 Manual MEAN 11-15-2 6.9 fl 7.4-10. complet PLATELE 013 4 ed T 22:45 VOLUME Granulo 11-15-2 63.4 % 37.0-80 complet cytes 013 .0 ed Fr Bld 22:45 Auto LYMPH % 11-15-2 25.8 % 10-50 complet 013 ed 22:45 Monocyt 11-15-2 6.1 % 1.7-9.3 complet es Fr 013 ed Bld 22:45 Auto Eosinop 11-15-2 4.2 % 0.1-12. complet hil Fr 013 0 ed Bld 22:45 Auto Basophi 11-15-2 0.6 % 0.1-2.0 complet ls Fr 013 ed Bld 22:45 Auto Granulo 11-15-2 5.8 1.3-8.0 complet cytes # 013 K/mm3 ed Bld 22:45 Auto Lymphoc 11-15-2 2.3 0.7-4.5 complet ytes Fr 013 K/mm3 ed Bld 22:45 Auto Monocyt 11-15-2 0.6 0.1-1.0 complet es # 013 K/mm3 ed Bld 22:45 Auto Eosinop 11-15-2 0.4 0.0-0.4 complet hil # 013 K/mm3 ed Bld 22:45 Auto Basophi 11-15-2 0.1 0-0.2 complet ls # 013 K/MM3 ed Bld 22:45 Auto Encounters Encounter Start End Date Code Location Performer Type Date Emergency AMITA Fermin MD (ER) 3 22:36 3 00:10 [facility]
--- OUTSIDE RECORDS SUMMARY | 2017-04-06 10:22 | External Medical Summary Rpt | CCD ---
Author Author , [facility] Organization [facility] Address Unknown Phone [email or web address] Care Team Providers Care Shower Doors And Panels Fabricator Name Role Phone Brigida Fermin MD, Unavailable Unavailable Brigida Fermin MD Purpose Continuity of Care Document - 11-15-2012 through 2016 Problems Code Diagnosis DOS Provider Status 412 412 OLD 11-16-2012 [place] MYOCARDIAL [facility] 722.10 722.10 11-16-2012 [place] LUMBAR DISC [facility] DISPLACEMEN T 729.81 729.81 11-16-2012 [place] SWELLING OF [facility] V14.0 V14.0 11-16-2012 [place] HX-PENICILL [facility] E78.5 Hyperlipide georgina, unspecified [...] Fermin MD (ER) 3 22:36 3 00:10 [facility]
--- NOTE | 2017-04-06 10:30 | Urgent Treatment Center Report ---
History of Present Issue Date/Time Seen by Provider 04/06/17 1026 Visit Reason Pt arrived:Walked Presenting Problem:PT C/O CHEST CONGESTION AND COUGH WAS SEEN IN [facility] A COUPLE DAYS AGO. Location if Accident: Onset of symptoms date/time:/ or onset unknown for:MEDICAL HX UNKNOWN Have you (or family members/close friends) recently traveled outside the [place]? N If Yes, where/when: Have you had exposure to infectious disease within the past month? TB? Other? Specify: Patient state that he was recently seen and treated for sinus infection State that his sinus infection has improved however now he feels like he may be getting some chest congestion and having a cough State that he is unsure if his sinuses may be draining down the back of his throat and causing the cough and congestion or if he may be getting a chest cold so he wanted to come in and get checked out before it got to bad ALLERGIES Coded Allergies: penicillin G (02/29/16) Home Medications Active Scripts Fluticasone Propionate (Flonase 50 Mcg Nasal [place]) 2 SPRAY NA DAILY #1 BOT Prov: 06/22/16 Doxycycline Hyclate (Vibramycin) 100 MG PO BID #14 CAP Prov: 04/04/17 Reported Medications Furosemide (Lasix) 40 MG PO BID Clopidogrel Bisulfate (Plavix) 75 MG PO DAILY Atorvastatin Calcium (Lipitor 20MG) 80 MG OR DAILY LISINOPRIL (Lisinopril) 2.5 MG PO DAILY ASPIRIN (Aspirin) 81 MG PO DAILY POTASSIUM CHL (Potassium Chloride) 20 MEQ PO DAILY Loratadine (Loratadine 10MG Tablet) 10 MG PO DAILY Multiple Vitamin (Multivitamin) 1 TAB PO DAILY History Medical History General CAD? No Angina: No DC: Yes Hypertension? Yes Hyperlipidemia? Yes CHF? No DVT? Yes PE? No COPD? No Asthma? No Anemia? No GERD? No Gastric ulcers? No GI Bleed? No Hernia? No Thyroid Problems? No Hypothyroidism? No CVA? No Seizures? No Diabetes? No Renal Insuffiency? No UTI? No Stones? No BPH? No GB Disease: Yes Nephritic Syndrome? No Asplenia? No Hepatitis? No Sickle Cell Disease? No Arthritis? No Migraines? No Cataracts? No Glaucoma? No MRSA? No HIV? No TB? No Anxiety? No Depression? No Cancer? No More? No Immunization HX DT/Tetanus UNKNOWN Surgical Hx Previous Surgery?Y GALLBLADDER CARDIAC STENT 05/2008 VEIN PROCEDURES Social History Smoking Hx Smoker: Never Smoker Tobacco: No Alcohol Alcohol: No Review of Systems All Other Systems Reviewed and Negative Respiratory cough, denies shortness of breath, denies wheezing Physical Exam Vital Signs Vital Signs Date Time Temp Pulse Resp B/P Pulse O2 O2 Flow FiO2 Ox Delivery Rate 04/06 1024 97.7 84 18 124/79 98 General Appearance normal appearance, WD/WN, no apparent distress Ear, Nose, Throat Throat mildly red, irritated Respiratory Status Yes: trachea midline, chest symmetrical. No: respiratory distress. Lung Sounds bilateral: normal breath sounds, lungs clear. Cardiovascular normal exam, regular rate/rhythm, no peripheral edema Neurologic alert, normal exam, oriented x 3 Medical Decision Making LABS/Meds/Orders Pt receiving controlled substance in ED? No Results/Orders Orders Procedure Date/time Status CHEST(2 VIEWS-NOT PORTABLE) 04/06 1026 Active XRAY/CT/US XRAY/CT/US XRAY chest XR interpretation by reviewed by me Xray Results no infiltrates Departure Departure Time of Disposition 1046 Disposition DC Home or Self Care(routine) Clinical Impression Primary Impression: Cough Condition STABLE Referrals Juan Carlos POE,Herminio (Family): 3 Days-Call Office Patient Instructions Cough, Guaifenesin Additional Instructions * Monitor Temp. Tylenol and/or Ibuprofen as needed. ER if fever is no less than 101 despite alternating Tylenol and Ibuprofen * Encourage fluids, water, Gatorade, powerade, pedialyte if /toddler/or child * Warm salt water gargles for throat irritation or if you began to have sore throat *Warm fluids will help with throat irritated *Sore throat lozenges *Sleep elevated *humidifier or vaporizer will help to moisten the air and will help you breath better Lots of rest Increase fluids, water, Gatorade, powerade will help to thin the mucous and make it easier to cough up *Your throat swab was sent to lab for culture. Those results area typically sent to your primary care physician. Be sure to follow up in 2-3 days if no improvement so they can review those results and treat if necessary If you dont have primary care I recommend you get one, but in the mean time you will have to return to a walk in clinic Follow up IMMEDIATELY for new or worsening of symptoms OR no noticeable improvement over the next 48-72 hours. 911 immediately for any life threatening symptoms such as chest pain or difficulty breathing Discharge Counseling Counseled pt/family regarding diagnosis, test results, medications/RX, home care, follow up needs Prescriptions Current Visit Scripts Fluticasone Propionate (Flonase 50 Mcg Nasal [place]) 2 SPRAY NA DAILY #1 BOT Guaifenesin (Mucinex) 1,200 MG PO BID #20 TER Prednisone (Prednisone 20MG) 20 MG PO BID #10 TAB PROMETHAZINE/DEXTROMETHORPHAN (Promethazine-Dm Syrup) 5 ML PO Q4HP PRN cough #150 SYR Take at night at 1050
[2017-04-06] MEDS ORDERED: FLONASE 50 MCG16 GM (10:51)
[2017-04-06] MEDS ORDERED: PREDNISONE 20MG20 MG PO (10:51)
[2017-04-06] MEDS ORDERED: PROMETHAZINE D118 ML PO (10:51)
[2017-04-06] MEDS ORDERED: MUCINEX1200 MG PO (10:51)
[2017-04-06 10:55] VITALS: BP 124/79
--- NOTE | 2017-04-06 12:02 | RADIOLOGY REPORT PS360 ---
CHEST(2 VIEWS-NOT PORTABLE) COMPARISON: PA and lateral chest 11/15/2012 HISTORY: Chest congestion TECHNIQUE: PA and lateral chest FINDINGS: The lung amor are fairly well-expanded and appear clear of infiltrate. The cardiac silhouette and vascularity are normal. There are small calcified left hilar nodes. IMPRESSION: Old granulomatous disease, no acute chest pathology noted
[2017-04-14] MEDS ORDERED: IBUPROFEN800 MG PO (02:03)
[2017-04-14] MEDS ORDERED: PANTOPRAZOLE40 M1 PO (10:38)
== END 2017-04-06 10:56 | disposition home or self-care (01) ==
LOC: UTC 10:14
DX: R05 Cough (principal); I25.2 Old myocardial infarction; I10 Essential (primary) hypertension; E78.5 Hyperlipidemia, unspecified; Z79.02 Long term (current) use of antithrombotics/antiplatelets; Z95.5 Presence of coronary angioplasty implant and graft; Z86.718 Personal history of other venous thrombosis and embolism; Z79.82 Long term (current) use of aspirin; Z79.899 Other long term (current) drug therapy